=== PATIENT | male | born 1990 | race African-American/Black ===

== ENCOUNTER 2023-11-09 04:07 | Day surgery (SDC) | payer OTHER ==
[2023-11-05 18:10] VITALS: BMI 30.2
[2023-11-09] MEDS ORDERED: MIDAZOLAM HCL 2 MG/2 ML SINGLE DOSE VIAL ONE (13:09)
[2023-11-09] MEDS ORDERED: ONDANSETRON 4 MG/2 ML VIAL ONE (13:40)
[2023-11-09] MEDS ORDERED: ceFAZolin SODIUM 1 GM VIAL ONE (13:43)
[2023-11-09] MEDS: ceFAZolin SODIUM 1 GM VIAL IVPB ONE (13:43)
[2023-11-09 17:09] VITALS: RESP 20; TEMP 97.3
[2023-11-09 17:13] VITALS: BP 125/74; PULSE 58
== END 2023-11-09 14:45 | disposition home or self-care (01) ==
LOC: JASU-SURG 04:07
PROVIDERS: ATTEND Urology
PROC: 0TF3XZZ Fragmentation in Right Kidney Pelvis, External Approach (ICD-10-PCS; principal; 2023-11-09 12:30)
DX: N20.0 Calculus of kidney (principal)